=== PATIENT | male | born 1965 | race Asian ===

== ENCOUNTER 2018-09-22 00:24 | Emergency (ER) | payer OTHER ==
[~2018-09-22] VITALS: Ht 170.2 cm; Wt 72.6 kg
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
[2018-09-22] MEDS ORDERED: ACETAMINOPHEN 325 MG TABLET PO ONE (01:00)
--- NOTE | 2018-09-22 01:01 | NUR ---
PT BEING WHEEL TO CT ON [facility]
[2018-09-22] MEDS ORDERED: ACETAMINOPHEN 325 MG TABLET ONE (01:02)
--- NOTE | 2018-09-22 01:04 | NUR ---
LEORA NOTIFIED. CASE #[id number]
--- NOTE | 2018-09-22 02:07 | NUR ---
[employer] AT BEDSIDE
[2018-09-22 04:54] VITALS: BP 107/63
--- NOTE | 2018-09-22 05:21 | NUR ---
Patient discharged to home in stable condition. Written and verbal after care instructions given. Patient verbalizes understanding of instruction. Pt ambulatory with a steady gait
--- NOTE | 2018-09-22 05:21 | NUR ---
PT PROVIDED WITH CLOTHES. PT REFUSED FOOD.
== END 2018-09-22 05:29 | disposition home or self-care (01) ==
LOC: ER 00:27
DX: S09.8XXA Other specified injuries of head, initial encounter (principal); F10.129 Alcohol abuse with intoxication, unspecified; Z98.890 Other specified postprocedural states; Z59.0 Homelessness; V03.99XA Pedestrian with other conveyance injured in collision with car, pick-up truck or van, unspecified whether traffic or nontraffic accident, initial encounter; Y93.01 Activity, walking, marching and hiking; Y92.89 Other specified places as the place of occurrence of the external cause; Y99.8 Other external cause status; Y90.9 Presence of alcohol in blood, level not specified
CPT/HCPCS: 70450-TC

== ENCOUNTER 2018-09-22 09:19 | Emergency (ER) | payer OTHER ==
[~2018-09-22] VITALS: Ht 170.2 cm; Wt 72.6 kg
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
--- NOTE | 2018-09-22 09:55 | NUR ---
LABS DRAWN SENT TO LAB UA SENT TO LAB PT SLEEPING CALM AND QUIET
[2018-09-22 10:19] LABS: BASOPHILS % (AUTO) 0.9 % (0.0-2.0); EOSINOPHILS % (AUTO) 0.2 % (0.0-6.0); HEMATOCRIT 36 % (39-51); HEMOGLOBIN 12.1 g/dL (13.5-17.5); LYMPHOCYTES # (AUTO) 1.3 /CMM (0.8-4.8); LYMPHOCYTES % (AUTO) 27.2 % (20.0-44.0); MEAN CORPUSCULAR HGB CONC 33 g/dl (31.0-36.0); MEAN CORPUSCULAR VOLUME 90 fL (80-96); MONOCYTES # (AUTO) 0.4 /CMM (0.1-1.30); MONOCYTES % (AUTO) 7.5 % (2.0-12.0); NEUTROPHILS % (AUTO) 64.2 % (43.0-81.0); PLATELET COUNT (AUTO) 94 /CMM (150-450); RED BLOOD CELL COUNT(AUTO) 4.03 MIL/uL (4.5-6.0); WHITE BLOOD COUNT (AUTO) 4.7 K/uL (4.3-11.0)
[2018-09-22 10:20] LABS: APPEARANCE,URINE Clear (CLEAR); BILIRUBIN,URINE Negative (NEGATIVE); BLOOD, URINE Trace-lysed Ery/uL (NEGATIVE); COLOR,URINE Yellow (YELLOW); KETONES,URINE Trace (NEGATIVE); LEUKOCYTE ESTERASE ,URINE Negative (NEGATIVE); NITRITE, URINE Negative (NEGATIVE); PH,URINE 6.5 (5.0-8.0); PROTEIN,URINE Negative (NEGATIVE); UGLUCOSE Negative (NEGATIVE); UROBILINOGEN,URINE 0.2 EU/dL (0.2)
[2018-09-22 10:28] LABS: CALCIUM, SERUM 8.4 mg/dL (8.5-10.1); CARBON DIOXIDE 21 mmol/L (21-32); CHLORIDE 102 mmol/L (98-107); CREATININE 0.7 mg/dL (0.6-1.3); GLUCOSE 81 mg/dL (74-106); POTASSIUM 4.6 mmol/L (3.5-5.1); SODIUM SERUM 138 mmol/L (136-145); UREA NITROGEN, BLOOD 7 mg/dL (7-18)
[2018-09-22 10:32] LABS: BACTERIA,URINE Few /HPF (None Seen); RBC,URINE 0-2 /HPF (0-2); SQUAMOUS EPITHELIAL CELL,UR Few /HPF (None Seen); URINE AMORPHOUS URATE Moderate /HPF (None Seen); WBC,URINE 0-2 /HPF (0-3)
[2018-09-22 10:35] LABS: ALANINE AMINOTRANSFERASE 62 U/L (12-78); ALBUMIN 3.5 g/dL (3.4-5.0); ALCOHOL, BLOOD 356 mg/dL (0-0); ALKALINE PHOSPHATASE 193 U/L (46-116); ASPARTATE AMINOTRANSFERASE 132 U/L (15-37); BILIRUBIN,DIRECT 0.3 mg/dL (0.0-0.2); TOTAL PROTEIN, SERUM 8.5 g/dL (6.4-8.2)
[2018-09-22 10:36] LABS: ACETAMINOPHEN 0 ug/ml (10-30); SALICYLATE < 0.2 mg/dL (2.8-20.0)
--- NOTE | 2018-09-22 11:25 | NUR ---
BELONGINGS KEPT IN UTILITY ROOM FOR S/I PRECAUTION
[2018-09-22 11:33] LABS: LYMPHOCYTES % (MANUAL) 19 % (16-48); MONOCYTES % (MANUAL) 3 % (0-11.0); NEUTROPHILS % (MANUAL) 78 (42-76)
--- NOTE | 2018-09-22 12:30 | NUR ---
PT SLEEPING SOUNDLY
--- NOTE | 2018-09-22 15:22 | NUR ---
PT AWAKE EATING LUNCH TOLERATING WELLAWAITING EVALUATION BY ER PROVIDER.
--- NOTE | 2018-09-22 17:20 | NUR ---
PT AWAKE TRIED TO WALK STATED IT HURTS TO WALK WANTS ATIVAN FOR DT'S .
--- NOTE | 2018-09-22 17:55 | NUR ---
MD FRITZ PATIENTS STILL WANTS TO KILL HIMSELF [facility]
--- NOTE | 2018-09-22 18:36 | NUR ---
SAAD TALKING WITH PATIENT
[2018-09-22] MEDS ORDERED: CHLORDIAZEPOXIDE HCL 25 MG CAPSULE ONE (19:40)
[2018-09-22] MEDS ORDERED: CHLORDIAZEPOXIDE HCL 25 MG CAPSULE PO ONE (20:00)
[2018-09-22] MEDS ORDERED: ACETAMINOPHEN 325 MG TABLET ONE (22:04)
--- NOTE | 2018-09-22 22:08 | NUR ---
PATIENT IS CLEARED. AWAITING BAL >100 BEFORE SENDING UPDATED RESULTS TO [facility]. SARAH/KRISTINA ACOSTA.
[2018-09-22] MEDS ORDERED: ACETAMINOPHEN ES 500 MG TABLET PO ONE (22:30)
--- NOTE | 2018-09-23 00:30 | NUR ---
PER INTAKE AT [facility]. NO BEDS AVAILABLE UNTIL AFTER 0800.
[2018-09-23] MEDS ORDERED: IBUPROFEN 400 MG TABLET ONE (04:43)
[2018-09-23] MEDS ORDERED: IBUPROFEN 400 MG TABLET PO ONE (05:00)
--- NOTE | 2018-09-23 07:55 | NUR ---
1:1 SITTER AT BEDSIDE
--- NOTE | 2018-09-23 08:00 | NUR ---
WANDED BY SECURITY
--- NOTE | 2018-09-23 10:05 | NUR ---
PROVIDED W MEAL TRAY, PT TOLERATING PO WELL.
[2018-09-23] MEDS ORDERED: CHLORDIAZEPOXIDE HCL 25 MG CAPSULE ONE (12:38)
[2018-09-23] MEDS ORDERED: CHLORDIAZEPOXIDE HCL 25 MG CAPSULE PO ONE (13:00)
--- NOTE | 2018-09-23 15:11 | NUR ---
CALLING SO SARAH TROTTER.
--- NOTE | 2018-09-23 15:12 | NUR ---
CALLING REPORT TO [facility], UNIT. MARISEL GUILLERMO.
--- NOTE | 2018-09-23 15:13 | NUR ---
CALLED [facility] FOR TRANSPORT ETA OF 1540 WAS GIVEN. TRIP#[id number]
--- NOTE | 2018-09-23 16:00 | NUR ---
REPORT GIVEN TO [facility] EMT, UNIT 520. PT IS GOING TO [facility]IA AMBULANCE.
[2018-09-23 16:04] VITALS: BP 149/89
== END 2018-09-23 16:07 ==
LOC: ER 09:19
DX: F10.129 Alcohol abuse with intoxication, unspecified (principal); R45.851 Suicidal ideations; I10 Essential (primary) hypertension; E11.9 Type 2 diabetes mellitus without complications; Z98.890 Other specified postprocedural states; Z59.0 Homelessness; Y90.8 Blood alcohol level of 240 mg/100 ml or more
CPT/HCPCS: 36415; 80048; 80076; 80305; 80307 ×3; 80329; 81001; 82962; 85025; 99285; G0480; 81000-TC

== ENCOUNTER 2018-11-17 12:31 | Emergency (ER) | payer OTHER ==
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
[2018-11-17 13:37] LABS: BASOPHILS # (AUTO) 0.1 /CMM (0.0-0.2); BASOPHILS % (AUTO) 2.8 % (0.0-2.0); EOSINOPHILS % (AUTO) 0.5 % (0.0-6.0); HEMATOCRIT 34 % (39-51); HEMOGLOBIN 11.2 g/dL (13.5-17.5); LYMPHOCYTES # (AUTO) 1.2 /CMM (0.8-4.8); LYMPHOCYTES % (AUTO) 45.9 % (20.0-44.0); MEAN CORPUSCULAR HGB CONC 33 g/dl (31.0-36.0); MEAN CORPUSCULAR VOLUME 87 fL (80-96); MONOCYTES # (AUTO) 0.2 /CMM (0.1-1.30); MONOCYTES % (AUTO) 8.4 % (2.0-12.0); NEUTROPHILS # (AUTO) 1.1 /CMM (1.8-8.9); NEUTROPHILS % (AUTO) 42.4 % (43.0-81.0); PLATELET COUNT (AUTO) 106 /CMM (150-450); RED BLOOD CELL COUNT(AUTO) 3.86 MIL/uL (4.5-6.0); WHITE BLOOD COUNT (AUTO) 2.5 K/uL (4.3-11.0)
[2018-11-17 14:04] LABS: ALANINE AMINOTRANSFERASE 50 U/L (12-78); ALCOHOL, BLOOD 529 mg/dL (0-0); ALKALINE PHOSPHATASE 155 U/L (46-116); ASPARTATE AMINOTRANSFERASE 89 U/L (15-37); BILIRUBIN,DIRECT 0.3 mg/dL (0.0-0.2); BILIRUBIN,TOTAL 0.6 mg/dL (0.2-1.0); CARBON DIOXIDE 26 mmol/L (21-32); CHLORIDE 107 mmol/L (98-107); CREATININE 0.6 mg/dL (0.6-1.3); GLUCOSE 105 mg/dL (74-106); POTASSIUM 3.6 mmol/L (3.5-5.1); SODIUM SERUM 143 mmol/L (136-145); TOTAL PROTEIN, SERUM 7.4 g/dL (6.4-8.2); UREA NITROGEN, BLOOD 2 mg/dL (7-18)
[2018-11-17 14:31] LABS: ACETAMINOPHEN 0 ug/ml (10-30); SALICYLATE < 0.2 mg/dL (2.8-20.0)
[2018-11-17 15:15] LABS: APPEARANCE,URINE Clear (CLEAR); BILIRUBIN,URINE Negative (NEGATIVE); BLOOD, URINE Trace-lysed Ery/uL (NEGATIVE); COLOR,URINE Yellow (YELLOW); KETONES,URINE Negative (NEGATIVE); LEUKOCYTE ESTERASE ,URINE Negative (NEGATIVE); NITRITE, URINE Negative (NEGATIVE); PROTEIN,URINE Negative (NEGATIVE); UGLUCOSE Negative (NEGATIVE); UROBILINOGEN,URINE 0.2 EU/dL (0.2)
[2018-11-17 15:39] LABS: BACTERIA,URINE None seen /HPF (None Seen); SQUAMOUS EPITHELIAL CELL,UR Few /HPF (None Seen); WBC,URINE 0-2 /HPF (0-3)
[2018-11-17 16:32] LABS: EOSINOPHILS % (MANUAL) 4 % (0-4); LYMPHOCYTES % (MANUAL) 39 % (16-48); MONOCYTES % (MANUAL) 4 % (0-11.0); NEUTROPHILS % (MANUAL) 53 (42-76)
--- NOTE | 2018-11-17 18:00 | NUR ---
PATIENT IS BECOMING MORE AGITATED, WANTS TO LEAVE FACILITY, PATIENT AMBULATING WITH UNSTEADY GAIT. EXPLAINED RISKS AND BENEFITS. ENCOURAGED PATIENT TO STAY, PATIENT REQUESTING FOR MEDICATION "TO HELP HIM RELAX." ROSALIO FRANCOIS AT BEDSIDE.
[2018-11-17] MEDS ORDERED: OLANZAPINE 10 MG VIAL IM ONE ×4 (18:21→22:01)
--- NOTE | 2018-11-17 19:18 | NUR ---
PATIENT RESTING, VITALS STABLE. NO DISTRESS NOTED.
--- NOTE | 2018-11-17 20:47 | NUR ---
OFFERRED PT TO CHANGE OUT OF WET CLOTHES INTO GOWN AND CHANGE BED LINEN, PT VERBALLY AGGRESSIVE AND REFUSED
--- NOTE | 2018-11-17 20:47 | NUR ---
PT AWAKE. STILLS APPEARS INTOXICATED. PROVIDED PT WITH SANDWICH AND WATER. WILL CONTINUE TO MONITOR
[2018-11-17] MEDS ORDERED: IBUPROFEN 600 MG TABLET PO ONE ×2 (21:30→21:42)
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
--- NOTE | 2018-11-17 21:33 | NUR ---
SUICIDE PRECAUTIONS INITIATED. SITTER AT BEDSIDE
--- NOTE | 2018-11-17 21:44 | NUR ---
CHRISTY AT BEDSIDE FOR BLOOD DRAW
--- NOTE | 2018-11-17 21:47 | NUR ---
PT REFUSED BLOOD DRAW, ER PA AWARE
--- NOTE | 2018-11-17 21:57 | NUR ---
PT BECOMING VERBALLY ABUSIVE AND YELLING AT STAFF. ALESSANDRO SANTAMARIA
--- NOTE | 2018-11-17 22:10 | NUR ---
PT REFUSING XRAY AT THIS TIME. ROSALIO FRANCOIS AWARE
--- NOTE | 2018-11-17 23:11 | NUR ---
PT RESTING COMFORTABLY IN BED. VITAL SIGNS STABLE. SITTER AT BEDSIDE. WILL CONTINUE TO MONITOR
[2018-11-17] MEDS ORDERED: HALOPERIDOL LACTATE INJ 5 MG/ML VIAL ONE (23:54)
[2018-11-17] MEDS ORDERED: diphenhydrAMINE HCL 50 MG/ML VIAL ONE (23:54)
[2018-11-17] MEDS ORDERED: LORAZEPAM INJ 2 MG/ML VIAL ONE (23:55)
[2018-11-18] MEDS ORDERED: diphenhydrAMINE HCL 50 MG/ML VIAL IM ONE
[2018-11-18] MEDS ORDERED: HALOPERIDOL LACTATE INJ 5 MG/ML VIAL IM ONE
[2018-11-18] MEDS ORDERED: LORAZEPAM INJ 2 MG/ML VIAL IM ONE
--- NOTE | 2018-11-18 | NUR ---
PT BECOMING VERBALLY AGGRESSIVE AND YELLING AT STAFF. ROSALIO FRANCOIS AWARE.
--- NOTE | 2018-11-18 01:01 | NUR ---
SYSTEM SPECIALIST AT BEDSIDE FOR REDRAW, PT STILL REFUSING. DR. ALMANZA AWARE
--- NOTE | 2018-11-18 04:53 | NUR ---
PT RESTING COMFORTABLY IN BED. VITAL SIGNS STABLE. SITTER AT BEDSIDE. WILL CONTINUE TO MONITOR
--- NOTE | 2018-11-18 06:46 | NUR ---
CONCRETE ROD BUSTER AT BEDSIDE FOR BLOOD DRAW
--- NOTE | 2018-11-18 06:47 | NUR ---
MINING ANALYST AT BEDSIDE FOR REDRAW
--- NOTE | 2018-11-18 08:10 | NUR ---
CREDIT AND COLLECTIONS ANALYST AT BEDSIDE WITH PATIENT
--- NOTE | 2018-11-18 08:10 | NUR ---
[place] social science teacher at bedside for eval.
--- NOTE | 2018-11-18 08:23 | NUR ---
Patient discharged to home in stable condition. Written and verbal after care instructions given. Patient verbalizes understanding of instruction.
--- NOTE | 2018-11-18 08:27 | NUR ---
Social service consult requested by Dr. Zimmerman for homelessness and ETOH abuse. Pt. is a 52 year old male who was brought to [facility] by EMS for alcohol intoxication. Per EMS, patient was found sleeping on the streets when a concerned citizen called 911. SW met with pt. bedside. Pt. is alert and oriented x 3. Pt. is ambulatory. Pt. appeared disheveled. Pt's mood is congruent and is cooperative with SW. Per pt. he has been homeless on and off for the past 10 years. Pt. receives GR and food stamps. Pt. is an alcoholic. When asked how much alcohol he drinks daily, pt. stated, " too much." Pt. drinks a bottle of vodka daily. Pt. was at [facility] sometime this year, however, left the program midway stating, " alcohol was calling him." SW encouraged pt. to go back to treatment. Pt. is currently wanting Correction placement. JACKELYN contacted [facility] located at [address] [facility] and spoke with Hyun (male) in men's visitor services specialist who informed SW to have pt. be there by 1PM. SW relayed the time to the pt. Pt. states he has been there before and is familiar with the correction. Pt. was provided with a TAP card to transport himself to the correction. Pt. was also provided with the following Homeless resources: [facility] located at [address] [place] [address] ; [facility], [address] ; [facility], [address] [place] [address] ; [facility] Homeless Resource Directory which includes food stamps, transitional housing, showers and hot meals etc; Mental Health clinics such as [facility] ; [facility] ; Health clinics;[facility] and Alcohol treatment centers such as [facility], ; [facility] Substance Abuse Hotline and [facility] . Homeless Patient Waiver form was signed by the pt. and placed in pt's chart. Pt. was provided with breakfast. No other social service needs are requested at this time.
[2018-11-18 08:28] VITALS: BP 128/75
--- NOTE | 2018-11-18 08:30 | NUR ---
tap card was provided to patient to head to the homeless detention per social worker psychiatric. patient verbalize that he understands.
== END 2018-11-18 08:30 | disposition home or self-care (01) ==
LOC: ER 12:34
DX: F10.229 Alcohol dependence with intoxication, unspecified (principal); R45.851 Suicidal ideations; D61.818 Other pancytopenia; R74.0 Nonspecific elevation of levels of transaminase and lactic acid dehydrogenase [LDH]; M25.561 Pain in right knee; F31.9 Bipolar disorder, unspecified; R56.9 Unspecified convulsions; I10 Essential (primary) hypertension; E11.9 Type 2 diabetes mellitus without complications; F29 Unspecified psychosis not due to a substance or known physiological condition; Y90.6 Blood alcohol level of 120-199 mg/100 ml; Z98.890 Other specified postprocedural states; Z59.0 Homelessness; Z91.19 Patient's noncompliance with other medical treatment and regimen
CPT/HCPCS: 36415 ×2; 70450; 71045; 72125; 73000; 73564; 80048; 80076; 80305; 80307 ×2; 80329; 81001; 85025; 96372 ×5; 99284; G0480; J1200; J1630; J2060; J3490 ×2; 81000-TC

== ENCOUNTER 2019-02-08 13:59 | Emergency (ER) | payer OTHER ==
[~2019-02-08] VITALS: Ht 170.2 cm; Wt 77.1 kg
--- NOTE | 2019-02-08 14:07 | NUR ---
WILLAM MILLER FROM THE STREET C/O ETOH, PT IS AAOX3, NOT IN RESPIRATORY DISTRESS, HOOKED TO MONITOR, KEPT RESTED AND COMFORTABLE, WILL CONTINUE TO MONITOR.
--- NOTE | 2019-02-08 15:24 | NUR ---
SEEN AND EXAMINED BY
--- NOTE | 2019-02-08 15:29 | NUR ---
ER PHLEB AT BEDSIDE FOR BLOOD DRAW.
--- NOTE | 2019-02-08 15:31 | NUR ---
PT IS WHEELED TO CT SCAN VIA [facility].
[2019-02-08 15:36] LABS: BASOPHILS # (AUTO) 0.1 /CMM (0.0-0.2); BASOPHILS % (AUTO) 2.8 % (0.0-2.0); EOSINOPHILS % (AUTO) 0.5 % (0.0-6.0); HEMATOCRIT 31 % (39-51); HEMOGLOBIN 10.4 g/dL (13.5-17.5); LYMPHOCYTES # (AUTO) 1.5 /CMM (0.8-4.8); LYMPHOCYTES % (AUTO) 52.7 % (20.0-44.0); MEAN CORPUSCULAR HGB CONC 34 g/dl (31.0-36.0); MEAN CORPUSCULAR VOLUME 85 fL (80-96); MONOCYTES # (AUTO) 0.2 /CMM (0.1-1.30); NEUTROPHILS # (AUTO) 1.1 /CMM (1.8-8.9); PLATELET COUNT (AUTO) 143 /CMM (150-450); RED BLOOD CELL COUNT(AUTO) 3.65 MIL/uL (4.5-6.0); WHITE BLOOD COUNT (AUTO) 2.9 K/uL (4.3-11.0)
[2019-02-08 16:14] LABS: CREATININE 0.7 mg/dL (0.6-1.3); POTASSIUM 3.5 mmol/L (3.5-5.1)
[2019-02-08 16:16] LABS: NEUTROPHILS % (MANUAL) 35 (42-76)
[2019-02-08 16:17] LABS: LYMPHOCYTES % (MANUAL) 55 % (16-48); MONOCYTES % (MANUAL) 5 % (0-11.0); REACTIVE LYMPHOCYTES 5 % (0-0)
[2019-02-08 16:20] LABS: BILIRUBIN,DIRECT 0.3 mg/dL (0.0-0.2); BILIRUBIN,TOTAL 0.8 mg/dL (0.2-1.0); TOTAL PROTEIN, SERUM 7.3 g/dL (6.4-8.2)
--- NOTE | 2019-02-08 16:26 | NUR ---
URINE SPECIMEN COLLECTED AND SENT TO LAB.
[2019-02-08 16:34] LABS: APPEARANCE,URINE Clear (CLEAR); BILIRUBIN,URINE SMALL (NEGATIVE); BLOOD, URINE Trace-lysed Ery/uL (NEGATIVE); COLOR,URINE Dark (YELLOW); KETONES,URINE Negative (NEGATIVE); LEUKOCYTE ESTERASE ,URINE Negative (NEGATIVE); NITRITE, URINE Negative (NEGATIVE); PROTEIN,URINE Negative (NEGATIVE); UGLUCOSE Negative (NEGATIVE)
[2019-02-08 16:59] LABS: WBC,URINE 0-2 /HPF (0-3)
[2019-02-08 17:00] LABS: BACTERIA,URINE Moderate /HPF (None Seen); SQUAMOUS EPITHELIAL CELL,UR Few /HPF (None Seen)
[2019-02-08 19:42] VITALS: BP 131/77
== END 2019-02-08 19:42 | disposition home or self-care (01) ==
LOC: ER 14:02
DX: F10.129 Alcohol abuse with intoxication, unspecified (principal); I10 Essential (primary) hypertension; E11.9 Type 2 diabetes mellitus without complications; F17.200 Nicotine dependence, unspecified, uncomplicated; R51 Headache; Z98.890 Other specified postprocedural states; Z59.0 Homelessness; Y90.9 Presence of alcohol in blood, level not specified; W19.XXXA Unspecified fall, initial encounter; Y93.01 Activity, walking, marching and hiking; Y92.828 Other wilderness area as the place of occurrence of the external cause; Y99.8 Other external cause status
CPT/HCPCS: 36415; 70450-TC; 80048-TC; 80076-TC; 81000-TC; 85025-TC; 87086-TC

== ENCOUNTER 2019-04-21 13:41 | Emergency (ER) | payer OTHER ==
[~2019-04-21] VITALS: Ht 170.2 cm; Wt 80.3 kg
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
--- NOTE | 2019-04-21 14:20 | NUR ---
pt provided w/ bed bath. and new clothing
--- NOTE | 2019-04-21 17:50 | NUR ---
pt ambulatory w/ steady gait. states wamnts to go home. aaox3. d/c in stable condition.
[2019-04-21 18:18] VITALS: BP 122/84
== END 2019-04-21 17:50 | disposition home or self-care (01) ==
LOC: ER 13:42
DX: F10.129 Alcohol abuse with intoxication, unspecified (principal); R56.9 Unspecified convulsions; I10 Essential (primary) hypertension; E11.9 Type 2 diabetes mellitus without complications; F17.200 Nicotine dependence, unspecified, uncomplicated; Y90.9 Presence of alcohol in blood, level not specified; Z98.890 Other specified postprocedural states; Z59.0 Homelessness